=== PATIENT | male | born 1935 | race Caucasian/White ===

== ENCOUNTER → 2017-12-20 | Outpatient (CLI) | payer OTHER ==
[~2017-12-20] VITALS: Ht 160 cm; Wt 83.0 kg
[~2017-12-20] MED LIST: ALBU90AE IH; AMLO10TA2 PO; ASPI-1181 PO; B2/V1TAB PO; BRIN8DRO OU; CARV3.12 PO; CETI10TA57 PO; CHOL500050 PO; CILO50TA PO; CLOP75TA14 PO; FLUT16H NASAL; FLUT200B IH; FURO40TA5 PO; LATA2.5D2 OU; LISI-617 PO; MONT10TA24 PO; REGADENOSON 0.4 MG/5 ML PF SYG IVP SCH; ROSU20TA PO; TAMS0.4C32 PO; TIOT4MIS3 IH; [UNRECOGNIZED DRUG - OTHER] PO
== END | disposition home or self-care (01) ==
LOC: SHCH 09:37
PROVIDERS: ATTEND Internal Medicine Cardiovascular Disease
DX: I25.10 Atherosclerotic heart disease of native coronary artery without angina pectoris (principal); I10 Essential (primary) hypertension
CPT/HCPCS: 78452; 93017; 96374; A9500 ×2; J2785

== ENCOUNTER 2018-01-26 06:59 | Observation (INO) | payer OTHER ==
[2018-01-24 10:26] VITALS: BP 138/69
[2018-01-24 10:33] LABS: BASOPHILS % (AUTO) 0.6 % (0.0-5.0); EOSINOPHILS % (AUTO) 2.3 % (0.0-8.0); HEMATOCRIT 41.7 % (42-54); LYMPHOCYTES % (AUTO) 19.7 % (21.0-51.0); MEAN CORPUSCULAR HEMOGLOBIN 33.5 pg (27.0-33.0); MEAN CORPUSCULAR HGB CONC 35.3 g/dL (32.0-36.0); MONOCYTES % (AUTO) 8.2 % (3.0-13.0); NEUTROPHILS % (AUTO) 69.2 % (40.0-77.0); PLATELET COUNT (AUTO) 186 K/uL (130-400); RED CELL DISTRIBUTION WIDTH 13.5 % (11.0-15.5); WHITE BLOOD COUNT (AUTO) 5.5 K/uL (4.8-10.8)
[2018-01-24 10:34] LABS: APPEARANCE,URINE Clear (CLEAR); BILIRUBIN,URINE Negative (NEGATIVE); COLOR,URINE Yellow (YELLOW); GLUCOSE, URINE (UA) Negative (NEGATIVE); KETONES,URINE Negative (NEGATIVE); LEUKOCYTE ESTERASE ,URINE Negative (NEGATIVE); NITRATE,URINE Negative (NEGATIVE); OCCULT BLOOD,URINE Moderate (NEGATIVE); PROTEIN,URINE Negative (NEGATIVE); UROBILINOGEN,URINE 0.2 mg/dL (0.2-1.0)
[2018-01-24 10:42] LABS: INR 1.14 (0.85-1.15); PARTIAL THROMBOPLASTIN TIME 30.7 SEC (26.3-35.5); PROTHROMBIN TIME 11.9 SEC (9.6-11.6)
[2018-01-24 10:54] LABS: CREATININE 1.3 mg/dL (0.5-1.5); POTASSIUM 4.7 mmol/L (3.5-5.1)
[2018-01-24 11:08] LABS: BACTERIA,URINE None Seen /HPF (None Seen); RBC,URINE 26-50 /HPF (0-1); SQUAMOUS EPITHELIAL CELL,UR Rare /HPF (0-2); WBC,URINE None Seen /HPF (0-1)
[~2018-01-26] VITALS: Ht 160 cm; Wt 65.6 kg
[2018-01-26] VITALS (12 sets, daily range): BP systolic 108–142; BP diastolic 49–69
[~2018-01-26 06:59] MED LIST changes: -CHOL500050 PO; -CLOP75TA14 PO; -FURO40TA5 PO; -LISI-617 PO; -REGADENOSON 0.4 MG/5 ML PF SYG IVP SCH
[2018-01-26] MEDS ORDERED: SODIUM CHLORIDE 0.9% 500ML 500 ML IV SCH (08:00)
[2018-01-26] MEDS ORDERED: SODIUM CHLORIDE 0.9% 1000ML 1,000 ML IV ONE (08:28)
[2018-01-26] MEDS ORDERED: IOPAMIDOL-370 100 ML VIAL IV ONE (10:34)
[2018-01-26] MEDS ORDERED: SODIUM BICARB 50MEQ 50ML VIAL ONE (10:34)
[2018-01-26] MEDS ORDERED: NITROGLYCERIN 5 MG/ML 10 ML VIAL IV ONE (10:34)
[2018-01-26] MEDS ORDERED: LIDOCAINE HCL 1% 20 ML VIAL ONE (10:34)
[2018-01-26] MEDS ORDERED: ISOVUE-370 50ML VIAL IV ONE (10:34)
[2018-01-26] MEDS ORDERED: HEPARIN SODIUM 1000UNIT/ML 10ML VIAL ONE (10:34)
[2018-01-26] MEDS ORDERED: LABETALOL HCL 5 MG/ML 20ML VIAL IV ONE (11:31)
[2018-01-26] MEDS ORDERED: CLOPIDOGREL BISULFATE 300 MG TAB ONE (11:56)
[2018-01-26] MEDS ORDERED: ASPIRIN 325MG EC TAB 325 MG TABLET.DR PO ONE (11:56)
[2018-01-26] MEDS ORDERED: SODIUM CHLORIDE 0.9% 1000ML 1,000 ML IV SCH (11:59)
[2018-01-26] MEDS ORDERED: ACETAMINOPHEN-CODEINE 300/30MG TAB PO PRN (12:00)
[2018-01-26] MEDS ORDERED: CLOP75TA14 PO (12:18)
[2018-01-26] MEDS ORDERED: ALBUTEROL SULFATE 0.083% 2.5 MG/3 ML INH IH PRN (13:30)
[2018-01-26] MEDS: CILOSTAZOL 100 MG TAB PO SCH (15:53)
[2018-01-26] MEDS: BUDESONIDE 0.5 MG/2 ML INH IH SCH (19:48)
[2018-01-26] MEDS ORDERED: MONTELUKAST SODIUM 10 MG TAB PO SCH (21:00)
[2018-01-26] MEDS ORDERED: LATANOPROST 2.5 ML DROPS OU SCH (21:00)
[2018-01-26] MEDS: CARVEDILOL 3.125 MG TABLET PO SCH (21:08)
[2018-01-27 03:53] VITALS: BP 132/61
[2018-01-27 04:57] LABS: HEMATOCRIT 34.2 % (42-54); MEAN CORPUSCULAR HEMOGLOBIN 32.8 pg (27.0-33.0); MEAN CORPUSCULAR HGB CONC 35.2 g/dL (32.0-36.0); MEAN CORPUSCULAR VOLUME 93.1 fL (79-99); PLATELET COUNT (AUTO) 159 K/uL (130-400); RED BLOOD CELL COUNT(AUTO) 3.68 MIL/uL (4.50-6.20); RED CELL DISTRIBUTION WIDTH 13.2 % (11.0-15.5); WHITE BLOOD COUNT (AUTO) 5.2 K/uL (4.8-10.8)
[2018-01-27 05:20] LABS: CREATININE 1.3 mg/dL (0.5-1.5); POTASSIUM 4.1 mmol/L (3.5-5.1)
[2018-01-27] MEDS: BUDESONIDE 0.5 MG/2 ML INH IH SCH (06:10)
[2018-01-27] MEDS: CILOSTAZOL 100 MG TAB PO SCH (06:27)
[2018-01-27 07:08] VITALS: BP 139/73
[2018-01-27] MEDS ORDERED: TAMSULOSIN HCL 0.4 MG CAP.ER.24H PO SCH (09:00)
[2018-01-27] MEDS ORDERED: AMLODIPINE BESYLATE 5 MG TAB PO SCH (09:00)
[2018-01-27] MEDS ORDERED: CLOPIDOGREL BISULFATE 75 MG TAB PO SCH (09:00)
[2018-01-27] MEDS ORDERED: STIOLTO RESPIMAT IH SCH (09:00)
[2018-01-27] MEDS ORDERED: ASPIRIN 81 MG EC TAB PO SCH (09:00)
[2018-01-27] MEDS ORDERED: FLUTICASONE PROPIONATE 50MCG/SPRAY 16 GM BOTTLE EN SCH (09:00)
[2018-01-27] MEDS ORDERED: CETIRIZINE HCL 5 MG TABLET PO SCH (09:00)
[2018-01-27] MEDS ORDERED: [UNRECOGNIZED DRUG - OTHER] PO SCH (09:00)
[2018-01-27] MEDS ORDERED: BRIMONIDINE OU SCH (09:00)
[2018-01-27] MEDS ORDERED: ATORVASTATIN CALCIUM 40 MG TABLET PO SCH (09:00)
[2018-01-27] MEDS ORDERED: BRINZOLAMIDE OU SCH (09:00)
[2018-01-27] MEDS ORDERED: [UNRECOGNIZED DRUG - OTHER] PO SCH (09:00)
[2018-01-27 09:28] VITALS: BP 139/73
[2018-01-27] MEDS: CARVEDILOL 3.125 MG TABLET PO SCH (09:28)
== END 2018-01-27 11:35 | disposition home or self-care (01) ==
LOC: DAH 06:59 → DAHIP 07:00 → 2DH 12:54
PROVIDERS: ADMIT Internal Medicine; ATTEND Internal Medicine
DX: I25.119 Atherosclerotic heart disease of native coronary artery with unspecified angina pectoris (principal); E78.5 Hyperlipidemia, unspecified; I10 Essential (primary) hypertension; I25.5 Ischemic cardiomyopathy; I73.9 Peripheral vascular disease, unspecified; J44.9 Chronic obstructive pulmonary disease, unspecified; Z87.891 Personal history of nicotine dependence; Z95.810 Presence of automatic (implantable) cardiac defibrillator; Z82.49 Family history of ischemic heart disease and other diseases of the circulatory system; Z79.82 Long term (current) use of aspirin
CPT/HCPCS: 36415; 71045; 80048; 81001; 85025; 85027; 85347; 85610; 85730; 93005; 93458; 94640; 94664; A4606; C1769; C1887; C1894; C9600; G0378; J1644; J3490; J7030; Q9967

== ENCOUNTER → 2018-08-04 | Outpatient (CLI) | payer OTHER ==
[~2018-08-04] MED LIST changes: -AMLO10TA2 PO; +AMLO10TA6 PO; +CLOP75TA14 PO
== END | disposition home or self-care (01) ==
LOC: SHCH 10:26
PROVIDERS: ATTEND Internal Medicine Cardiovascular Disease
DX: R60.9 Edema, unspecified (principal)
CPT/HCPCS: 93970

== ENCOUNTER 2018-09-28 10:56 | Observation (INO) | payer OTHER ==
[~2018-09-28] VITALS: Ht 160 cm; Wt 80.3 kg
[~2018-09-28 10:56] MED LIST changes: -AMLO10TA6 PO; +AMLO10TA7 PO
[2018-09-28 12:15] LABS: EOSINOPHILS % (AUTO) 3.2 % (0.0-8.0); HEMATOCRIT 39.6 % (42-54); LYMPHOCYTES % (AUTO) 17.1 % (21.0-51.0); MEAN CORPUSCULAR HEMOGLOBIN 32.6 pg (27.0-33.0); MEAN CORPUSCULAR HGB CONC 34.3 g/dL (32.0-36.0); MEAN CORPUSCULAR VOLUME 95.2 fL (79-99); MONOCYTES % (AUTO) 6.9 % (3.0-13.0); NEUTROPHILS % (AUTO) 71.8 % (40.0-77.0); PLATELET COUNT (AUTO) 181 K/uL (130-400); RED BLOOD CELL COUNT(AUTO) 4.16 MIL/uL (4.50-6.20); RED CELL DISTRIBUTION WIDTH 13.5 % (11.0-15.5); WHITE BLOOD COUNT (AUTO) 5.5 K/uL (4.8-10.8)
[2018-09-28 12:25] LABS: INR 1.18 (0.85-1.15); PARTIAL THROMBOPLASTIN TIME 28.8 SEC (26.3-35.5); PROTHROMBIN TIME 12.3 SEC (9.6-11.6)
[2018-09-28 12:26] LABS: CREATININE 1.3 mg/dL (0.5-1.5); POTASSIUM 4.3 mmol/L (3.5-5.1)
[2018-09-28 12:29] LABS: ABG BASE EXCESS 1.7 mmol/L (-2.0-3.0); ABG OXYGEN SATURATION 94.6 % (95.0-99.0); ABG PCO2 40 mmHg (35-48)
[2018-09-28 12:29] LABS: BILIRUBIN,TOTAL 0.8 mg/dL (0.2-1.0); TOTAL PROTEIN, SERUM 7.7 g/dL (6.0-8.3)
[2018-09-28 13:02] LABS: B-TYPE NATRIURETIC PEPTIDE 109 pg/mL (0-100)
[2018-09-28] MEDS ORDERED: IOHEXOL-350 75 ML VIAL IV ONE (13:14)
[2018-09-28] MEDS ORDERED: IPRATROPIUM/ALBUTEROL SULFATE 3 ML SOLUTION IH ONE (16:14)
[2018-09-28] MEDS ORDERED: ACETAMINOPHEN 325 MG TAB PO PRN (19:15)
[2018-09-28] MEDS ORDERED: ONDANSETRON HCL 4 MG/2 ML VIAL IV PRN (19:15)
[2018-09-28] MEDS ORDERED: FAMOTIDINE 20MG TAB 20 MG TAB ONE (19:46)
[2018-09-28] MEDS ORDERED: ENOXAPARIN SODIUM 30 MG/0.3 ML SQ ONE (19:46)
[2018-09-28] MEDS ORDERED: CARVEDILOL 3.125 MG TABLET PO ONE (19:46)
[2018-09-28] MEDS: CARVEDILOL 3.125 MG TABLET PO SCH (21:00)
[2018-09-28] MEDS: MONTELUKAST SODIUM 10 MG TAB PO SCH (21:00)
[2018-09-28] MEDS: CILOSTAZOL 100 MG TAB PO SCH (21:00)
[2018-09-28] MEDS: ENOXAPARIN SODIUM 30 MG/0.3 ML SQ SCH (21:00)
[2018-09-28] MEDS: LATANOPROST 2.5 ML DROPS OU SCH (21:00)
[2018-09-28] MEDS: FAMOTIDINE 20MG TAB 20 MG TAB PO SCH (21:00)
[2018-09-28] MEDS ORDERED: MONTELUKAST SODIUM 10 MG TAB ONE (21:54)
[2018-09-28] MEDS: ALBUTEROL SULFATE 0.083% 2.5 MG/3 ML INH IH PRN (23:04)
--- NOTE | 2018-09-29 | NUR ---
REPORT RECEIVED FROM MIR CLAYTON. DIRECT ADMIT FROM ER.
--- NOTE | 2018-09-29 00:10 | NUR ---
PT ASSESSMENT- ARRIVED TO UNIT. AAOX3. NO PAIN STATED. NO SOB. NO CONCERNS AT THIS TIME. STATES HAS BEEN AT HOSPITAL BEFORE. LIVES AT HOME WITH PARTNER. PERRLA. ACTIVE BOWEL SOUNDS. ON BEDREST AT THE MOMENT. IV TO LEFT FOREARM 20G, RIGHT AC 20G. PATENT. STATES WAS FEELING SOB, DIZZINESS, AND FEELING OF PASSING OUT WHILE AT [facility]. MEDS RECONCILED.
[2018-09-29 00:30] VITALS: BP 149/58
[2018-09-29 04:00] VITALS: BP 111/69
[2018-09-29] MEDS: ALBUTEROL SULFATE 0.083% 2.5 MG/3 ML INH IH PRN ×3 (06:47→18:05)
[2018-09-29 08:00] VITALS: BP 116/60
[2018-09-29] MEDS: [UNRECOGNIZED DRUG - OTHER] PO SCH (09:00)
[2018-09-29] MEDS ORDERED: AMLODIPINE BESYLATE 5 MG TAB PO SCH (09:00)
[2018-09-29] MEDS: FLUTICASONE PROPIONATE 50MCG/SPRAY 16 GM BOTTLE NS SCH (09:00)
[2018-09-29] MEDS ORDERED: TAMSULOSIN HCL 0.4 MG CAP.ER.24H PO SCH (09:00)
[2018-09-29 11:00] VITALS: BP 128/68
[2018-09-29] MEDS: CILOSTAZOL 100 MG TAB PO SCH ×2 (11:10→22:28)
[2018-09-29] MEDS: CETIRIZINE HCL 5 MG TABLET PO SCH (11:10)
[2018-09-29] MEDS: FAMOTIDINE 20MG TAB 20 MG TAB PO SCH ×2 (11:11→22:28)
[2018-09-29] MEDS: ASPIRIN 81 MG EC TAB PO SCH (11:11)
[2018-09-29] MEDS: ATORVASTATIN CALCIUM 40 MG TABLET PO SCH (11:11)
[2018-09-29] MEDS: CLOPIDOGREL BISULFATE 75 MG TAB PO SCH (11:11)
[2018-09-29] MEDS: CARVEDILOL 3.125 MG TABLET PO SCH (11:12)
[2018-09-29] MEDS: ENOXAPARIN SODIUM 30 MG/0.3 ML SQ SCH ×2 (11:12→22:30)
[2018-09-29] MEDS: [UNRECOGNIZED DRUG - OTHER] PO SCH (11:18)
[2018-09-29] MEDS: OLODATEROL HCL IH SCH (11:20)
[2018-09-29] MEDS: TIOTROPIUM BR IH SCH (11:20)
[2018-09-29] MEDS: FLUTICASONE FUROATE IH SCH (11:20)
[2018-09-29 16:00] VITALS: BP 158/70
[2018-09-29] MEDS ORDERED: FURO40SO PO (17:59)
[2018-09-29] MEDS ORDERED: FURO20TA4 PO (18:04)
[2018-09-29 20:17] VITALS: BP 102/55
[2018-09-29] MEDS: LATANOPROST 2.5 ML DROPS OU SCH (21:00)
[2018-09-29] MEDS: FUROSEMIDE 40 MG TABLET PO SCH (22:28)
[2018-09-29] MEDS: MONTELUKAST SODIUM 10 MG TAB PO SCH (22:28)
[2018-09-30] MEDS: ALBUTEROL SULFATE 0.083% 2.5 MG/3 ML INH IH PRN (00:19)
[2018-09-30 01:32] VITALS: BP 128/80
[2018-09-30 04:00] VITALS: BP 108/59
[2018-09-30 04:40] LABS: BASOPHILS % (AUTO) 0.6 % (0.0-5.0); EOSINOPHILS % (AUTO) 3.5 % (0.0-8.0); HEMATOCRIT 33.9 % (42-54); LYMPHOCYTES % (AUTO) 23.8 % (21.0-51.0); MEAN CORPUSCULAR VOLUME 94.1 fL (79-99); NEUTROPHILS % (AUTO) 64.1 % (40.0-77.0); PLATELET COUNT (AUTO) 151 K/uL (130-400); RED BLOOD CELL COUNT(AUTO) 3.61 MIL/uL (4.50-6.20); RED CELL DISTRIBUTION WIDTH 13.3 % (11.0-15.5); WHITE BLOOD COUNT (AUTO) 4.9 K/uL (4.8-10.8)
[2018-09-30 05:39] LABS: CREATININE 1.8 mg/dL (0.5-1.5); POTASSIUM 3.5 mmol/L (3.5-5.1); THYROID STIMULATING HORMONE 2.4 uIU/mL (0.36-3.74)
[2018-09-30 07:00] VITALS: BP_SYST 102; BP_SYST 107; BP_SYST 120; BP_DIAS 48; BP_DIAS 60; BP_DIAS 74
[2018-09-30] MEDS: ASPIRIN 81 MG EC TAB PO SCH (08:51)
[2018-09-30] MEDS: ENOXAPARIN SODIUM 30 MG/0.3 ML SQ SCH (08:51)
[2018-09-30] MEDS: FAMOTIDINE 20MG TAB 20 MG TAB PO SCH (08:51)
[2018-09-30] MEDS: CLOPIDOGREL BISULFATE 75 MG TAB PO SCH (08:51)
[2018-09-30] MEDS: FUROSEMIDE 40 MG TABLET PO SCH (08:52)
[2018-09-30] MEDS: CETIRIZINE HCL 5 MG TABLET PO SCH (08:52)
[2018-09-30] MEDS: CILOSTAZOL 100 MG TAB PO SCH (08:52)
[2018-09-30] MEDS: ATORVASTATIN CALCIUM 40 MG TABLET PO SCH (08:53)
[2018-09-30] MEDS: FLUTICASONE FUROATE IH SCH (08:57)
[2018-09-30] MEDS: FLUTICASONE PROPIONATE 50MCG/SPRAY 16 GM BOTTLE NS SCH (08:57)
[2018-09-30] MEDS: OLODATEROL HCL IH SCH (08:58)
[2018-09-30] MEDS: [UNRECOGNIZED DRUG - OTHER] PO SCH (08:58)
[2018-09-30] MEDS: TIOTROPIUM BR IH SCH (08:58)
[2018-09-30] MEDS: [UNRECOGNIZED DRUG - OTHER] PO SCH (08:58)
[2018-09-30] MEDS ORDERED: LISI2.5T2 PO (11:08)
[2018-09-30] MEDS ORDERED: CARV6.25 PO (11:08)
[2018-09-30] MEDS ORDERED: FLUT1DIS4 IH (12:44)
[2018-09-30] MEDS ORDERED: IOHEXOL-350 75 ML VIAL IV ONE (13:34)
--- NOTE | 2018-09-30 14:22 | NUR ---
PATIENT DISCHARGED IV DISCONTINUED, BLEEDING CONTROLLED, CATHLON INTACT, PATIENT TOLERATED WITHOUT INCIDENT.
== END 2018-09-30 13:35 | disposition home or self-care (01) ==
LOC: EDH 10:56 → EDHIP 18:25 → 3BH 09-29 00:15
PROVIDERS: ADMIT Internal Medicine; ATTEND Internal Medicine
DX: R55 Syncope and collapse (principal); E78.5 Hyperlipidemia, unspecified; I11.0 Hypertensive heart disease with heart failure; I25.10 Atherosclerotic heart disease of native coronary artery without angina pectoris; I25.5 Ischemic cardiomyopathy; I45.10 Unspecified right bundle-branch block; I50.22 Chronic systolic (congestive) heart failure; I73.9 Peripheral vascular disease, unspecified; I95.1 Orthostatic hypotension; J44.0 Chronic obstructive pulmonary disease with (acute) lower respiratory infection; J44.1 Chronic obstructive pulmonary disease with (acute) exacerbation; R09.02 Hypoxemia; Z87.891 Personal history of nicotine dependence; Z95.5 Presence of coronary angioplasty implant and graft; Z95.810 Presence of automatic (implantable) cardiac defibrillator
CPT/HCPCS: 36415 ×2; 36600; 71045; 71275; 80048; 80053; 82803; 83880; 84439; 84443; 84484 ×2; 85025 ×2; 85378; 85610; 85730; 93005; 93970; 94640 ×6; 94664; 94760 ×2; 96372 ×2; 99291; G0378 ×43; J1650 ×4; Q9967 ×2

== ENCOUNTER → 2019-04-09 | Outpatient (CLI) | payer OTHER ==
[~2019-04-09] MED LIST changes: -AMLO10TA7 PO; -CARV3.12 PO; +CARV6.25 PO; +FLUT1DIS4 IH; -FLUT200B IH; +FURO20TA4 PO; +LISI2.5T2 PO; -MONT10TA24 PO; -ROSU20TA PO; +ROSU20TA23 PO; -TAMS0.4C32 PO; -[UNRECOGNIZED DRUG - OTHER] PO
== END | disposition home or self-care (01) ==
LOC: SHCH 10:33
PROVIDERS: ATTEND Internal Medicine Cardiovascular Disease
DX: I11.9 Hypertensive heart disease without heart failure (principal); I35.8 Other nonrheumatic aortic valve disorders
CPT/HCPCS: 93306

== ENCOUNTER → 2019-05-21 | Outpatient (CLI) | payer OTHER ==
[~2019-05-21] VITALS: Ht 162.6 cm; Wt 81.2 kg
[~2019-05-21] MED LIST changes: +REGADENOSON 0.4 MG/5 ML PF SYG IVP SCH
== END | disposition home or self-care (01) ==
LOC: SHCH 08:24
PROVIDERS: ATTEND Internal Medicine Cardiovascular Disease
DX: I25.119 Atherosclerotic heart disease of native coronary artery with unspecified angina pectoris (principal)
CPT/HCPCS: 78452; 93017; 96374; A9500 ×2; J2785

== ENCOUNTER → 2019-06-18 | Outpatient (CLI) | payer OTHER ==
[~2019-06-18] MED LIST changes: -REGADENOSON 0.4 MG/5 ML PF SYG IVP SCH
== END | disposition home or self-care (01) ==
LOC: RAH 11:03
PROVIDERS: ATTEND Urology
DX: N32.89 Other specified disorders of bladder (principal); R31.29 Other microscopic hematuria
CPT/HCPCS: 76770

== ENCOUNTER 2019-07-11 07:23 | Observation (INO) | payer OTHER ==
[2019-07-09 12:17] LABS: BASOPHILS % (AUTO) 0.6 % (0.0-5.0); EOSINOPHILS % (AUTO) 4.2 % (0.0-8.0); HEMATOCRIT 39.7 % (42-54); LYMPHOCYTES % (AUTO) 17.5 % (21.0-51.0); MEAN CORPUSCULAR VOLUME 96.9 fL (79-99); MONOCYTES % (AUTO) 9.2 % (3.0-13.0); NEUTROPHILS % (AUTO) 68.5 % (40.0-77.0); NUCLEATED RED BLOOD CELLS 0.1 % (0.0-0.19); PLATELET COUNT (AUTO) 175 K/uL (130-400); RED BLOOD CELL COUNT(AUTO) 4.09 MIL/uL (4.50-6.20); RED CELL DISTRIBUTION WIDTH 13.2 % (11.0-15.5); WHITE BLOOD COUNT (AUTO) 4.8 K/uL (4.8-10.8)
[2019-07-09 12:21] VITALS: BP 163/83
[2019-07-09 12:27] LABS: CREATININE 1.3 mg/dL (0.5-1.5); POTASSIUM 4.5 mmol/L (3.5-5.1)
[2019-07-09 12:29] LABS: INR 1.22 (0.85-1.15); PARTIAL THROMBOPLASTIN TIME 32.2 SEC (26.3-35.5); PROTHROMBIN TIME 12.7 SEC (9.6-11.6)
--- NOTE | 2019-07-09 13:15 | NUR ---
RE: CILOSTAZOL INFORMED LUIS DAN THAT PATIENT IS CURRENTLY TAKING CILOSTAZOL BID. PATIENT'S LAST DOSE WAS LAST NIGHT. PER INÉS, OK TO PROCEED WITH SCHEDULED PROCEDURE.
--- NOTE | 2019-07-10 09:43 | NUR ---
LABS ABNORMAL LAbs reported to imer padron,no further orders given
[2019-07-11] VITALS (10 sets, daily range): BP systolic 119–175; BP diastolic 59–89
[~2019-07-11] VITALS: Ht 157.5 cm; Wt 78.4 kg
[~2019-07-11 07:23] MED LIST changes: +ACET650T9 PO; -ALBU90AE IH; -B2/V1TAB PO; +CHOL500050 PO; +FLUT1BLS3 IH; -FLUT1DIS4 IH; +NITR0.4T50 SL; +SODIUM CHLORIDE 0.9% 1000ML 1,000 ML IV SCH; +TAMS-1 PO; -TIOT4MIS3 IH; +VIT1CAPS5 PO
[2019-07-11] MEDS ORDERED: ALBU90AE IH ×2 (09:14)
[2019-07-11] MEDS ORDERED: CEFAZOLIN SODIUM 1 GM VIAL ONE (11:22)
[2019-07-11] MEDS ORDERED: MIDAZOLAM HCL 1 MG/ML 2ML VIAL ONE ×2 (11:22→13:03)
[2019-07-11] MEDS ORDERED: MEPERIDINE-PF 25 MG/ML SYG ONE ×2 (11:22→13:04)
[2019-07-11] MEDS ORDERED: IODIXANOL 320 MG/ML 100 ML VIAL ONE (11:23)
[2019-07-11] MEDS ORDERED: LIDOCAINE HCL 1% MDV 50ML VIAL ONE (11:23)
[2019-07-11] MEDS ORDERED: BUPIVACAINE/PF 0.25% 10ML VIAL IJ ONE (11:23)
[2019-07-11] MEDS ORDERED: VANCOMYCIN 1GM+NS 250ML 500 ML IV ONE (11:26)
[2019-07-11] MEDS ORDERED: OCTYL 2-CYANOACRYLATE 1 EACH TP ONE (13:10)
[2019-07-11] MEDS ORDERED: ACETAMINOPHEN EXTENDED RELEASE 650 MG TABLET PO PRN (13:45)
[2019-07-11] MEDS ORDERED: ONDANSETRON HCL 4 MG/2 ML VIAL IV PRN (13:45)
[2019-07-11] MEDS ORDERED: NITROGLYCERIN 0.4 MG SL TAB SL PRN (13:45)
[2019-07-11] MEDS ORDERED: ACETAMINOPHEN-CODEINE 300/30MG TAB PO PRN ×2 (13:45)
[2019-07-11] MEDS ORDERED: ACETAMINOPHEN 325 MG TAB PO PRN (14:30)
--- NOTE | 2019-07-11 14:30 | NUR ---
ARRIVAL TO FLOOR PT IS AAOX4 ARRIVED TO ROOM 220. LEFT UPPER CHEST DRESSING CLEAN DRY AND INTACT, BEDREST IN PROGRESS. ARRIVED WITH ORDERS, CALL LIGHT WITHIN REACH.
[2019-07-11] MEDS: BRIMONID TART OU SCH ×2 (14:55→21:00)
[2019-07-11] MEDS: BRINZOLAMIDE OU SCH ×2 (14:55→21:00)
--- NOTE | 2019-07-11 17:45 | NUR ---
STATUS SITTING UPRIGHT AT BEDSIDE, TOLERATED DINNER. CALL LIGHT WITHIN REACH.
[2019-07-11] MEDS: CARVEDILOL 6.25 MG TABLET PO SCH (20:24)
[2019-07-11] MEDS: TAMSULOSIN HCL 0.4 MG CAP.ER.24H PO SCH (20:25)
[2019-07-11] MEDS: CILOSTAZOL 100 MG TAB PO SCH (20:26)
[2019-07-11] MEDS ORDERED: LATANOPROST 2.5 ML DROPS OU SCH (21:00)
[2019-07-11] MEDS ORDERED: ATORVASTATIN CALCIUM 40 MG TABLET PO SCH (21:00)
[2019-07-11] MEDS ORDERED: ASPIRIN 81 MG EC TAB PO SCH (21:00)
[2019-07-12 03:49] LABS: BASOPHILS % (AUTO) 0.5 % (0.0-5.0); EOSINOPHILS % (AUTO) 4.4 % (0.0-8.0); HEMATOCRIT 35.6 % (42-54); LYMPHOCYTES % (AUTO) 17.2 % (21.0-51.0); MEAN CORPUSCULAR HGB CONC 33.8 g/dL (32.0-36.0); MEAN CORPUSCULAR VOLUME 97.6 fL (79-99); MONOCYTES % (AUTO) 9.6 % (3.0-13.0); NEUTROPHILS % (AUTO) 68.3 % (40.0-77.0); PLATELET COUNT (AUTO) 147 K/uL (130-400); RED BLOOD CELL COUNT(AUTO) 3.65 MIL/uL (4.50-6.20); RED CELL DISTRIBUTION WIDTH 13.3 % (11.0-15.5)
[2019-07-12 04:07] LABS: CREATININE 1.3 mg/dL (0.5-1.5); MAGNESIUM 1.8 mg/dL (1.80-2.40); PHOSPHORUS 2.7 mg/dL (2.5-4.9); POTASSIUM 4.2 mmol/L (3.5-5.1)
[2019-07-12 04:10] VITALS: BP 126/74
[2019-07-12] MEDS ORDERED: VANCOMYCIN 1GM+NS 250ML 250 ML IV SCH (06:00)
--- NOTE | 2019-07-12 06:27 | NUR ---
PATIENT HAS SLING TO LEFT ARM. NO HEMATOMA AT SITE. PATIENT REQUESTED PAIN MEDSX1 FOR SORENESS AT SITE. NO SWELLING TO ARM OR FINGERS. RADIAL PULSE PALPABLE. DENIES NUMBNESS OR TINGLING. USING URINAL APPROPRIATELY.
[2019-07-12] MEDS ORDERED: ALBUTEROL SULFATE 0.083% 2.5 MG/3 ML INH IH PRN (06:45)
[2019-07-12 07:10] VITALS: BP 121/73
[2019-07-12] MEDS: BRIMONID TART OU SCH (07:11)
[2019-07-12] MEDS: BRINZOLAMIDE OU SCH (07:11)
[2019-07-12] MEDS: CILOSTAZOL 100 MG TAB PO SCH (07:42)
[2019-07-12 07:43] VITALS: BP 126/74
[2019-07-12] MEDS: CARVEDILOL 6.25 MG TABLET PO SCH (07:43)
[2019-07-12] MEDS: TAMSULOSIN HCL 0.4 MG CAP.ER.24H PO SCH (07:43)
--- NOTE | 2019-07-12 08:00 | NUR ---
ASSESSMENT PT IS AAOX4 DENIES CP DENIES SOB DENIES NV NO COMPLAINTS. LEFT UPPER CHEST DRESSING CLEAN DRY AND INTACT, LEFT ARM SLING IN PLACE. CALL LIGHT WITHIN REACH.
[2019-07-12] MEDS ORDERED: VIT A PO SCH (09:00)
[2019-07-12] MEDS ORDERED: ZINC PO SCH (09:00)
[2019-07-12] MEDS ORDERED: FUROSEMIDE 20 MG TABLET PO SCH (09:00)
[2019-07-12] MEDS ORDERED: VIT E PO SCH (09:00)
[2019-07-12] MEDS ORDERED: LISINOPRIL 2.5 MG TABLET PO SCH (09:00)
[2019-07-12] MEDS ORDERED: COPPER PO SCH (09:00)
[2019-07-12] MEDS ORDERED: CETIRIZINE HCL 5 MG TABLET PO SCH (09:00)
[2019-07-12] MEDS ORDERED: VIT C PO SCH (09:00)
[2019-07-12] MEDS ORDERED: TRELEGY ELLIPTA IH PRN (09:00)
[2019-07-12] MEDS ORDERED: CLOPIDOGREL BISULFATE 75 MG TAB PO SCH (09:00)
[2019-07-12] MEDS ORDERED: FLUTICASONE PROPIONATE 50MCG/SPRAY 16 GM BOTTLE NS SCH (09:00)
--- NOTE | 2019-07-12 09:00 | NUR ---
MID LEVEL ROUNDS INÉS BRITTON / Haider QUEVEDO NP ROUNDED. OK TO DC HOME.
--- NOTE | 2019-07-12 10:02 | NUR ---
DISCHARGE DC INSTRUCTIONS AND PAPERWORK GIVEN TO PATIENT. VERBALIZED UNDERSTANDING OF INSTRUCTIONS, AGREES TO FOLLOW UP WITH DR HSU OUTPT. AGREES TO TAKE MEDS ORDERED. ALL QUESTIONS ANSWERED. PIV REMOVED, CATH TIP INTACT, TELE PACK REMOVED. PT IS AWAITING RIDE.
[2019-07-18] MEDS ORDERED: **HM**(Cholecalciferol (Vitamin D3) (Vitamin D) 50,000 UNIT PO SCH (09:00)
== END 2019-07-12 10:30 | disposition home or self-care (01) ==
LOC: DAH 07:23 → DAHIP 07:24 → DAH 07:24 → 2DH 14:30
PROVIDERS: ADMIT Internal Medicine Critical Care Medicine; ATTEND Internal Medicine Critical Care Medicine
DX: I42.9 Cardiomyopathy, unspecified (principal); E78.5 Hyperlipidemia, unspecified; M19.90 Unspecified osteoarthritis, unspecified site; Z45.02 Encounter for adjustment and management of automatic implantable cardiac defibrillator; Z79.02 Long term (current) use of antithrombotics/antiplatelets; Z79.51 Long term (current) use of inhaled steroids; Z88.0 Allergy status to penicillin; Z79.899 Other long term (current) drug therapy; Z79.01 Long term (current) use of anticoagulants
CPT/HCPCS: 33225; 33264; 36415 ×2; 71046; 80048 ×2; 83735; 84100; 85025 ×2; 85610; 85730; 93005; 94664; 96365; 96366; A4215; A4216; A4221; A4222; A4223 ×3; A4606; C1769; C1882; C1894; C1900; G0378 ×21; J2175 ×2; J2250 ×2; J3370 ×2; J3490 ×2; J7030; Q9967; 33263; 99156; 99157; J0690

== ENCOUNTER → 2019-07-13 | Outpatient (CLI) | payer OTHER ==
[~2019-07-13] MED LIST changes: +ALBU90AE IH; -SODIUM CHLORIDE 0.9% 1000ML 1,000 ML IV SCH
== END | disposition home or self-care (01) ==
LOC: RAH 13:26
PROVIDERS: ATTEND Internal Medicine Cardiovascular Disease
DX: I82.402 Acute embolism and thrombosis of unspecified deep veins of left lower extremity (principal)
CPT/HCPCS: 93971

== ENCOUNTER 2019-08-07 12:03 | Inpatient (IN) | payer OTHER ==
[2019-08-06 09:13] VITALS: BP 183/81
[2019-08-06 09:40] LABS: MEAN CORPUSCULAR HEMOGLOBIN 33.2 pg (27.0-33.0); MEAN CORPUSCULAR VOLUME 97.6 fL (79-99); PLATELET COUNT (AUTO) 154 K/uL (130-400); RED BLOOD CELL COUNT(AUTO) 3.99 MIL/uL (4.50-6.20); RED CELL DISTRIBUTION WIDTH 13.6 % (11.0-15.5); WHITE BLOOD COUNT (AUTO) 8.3 K/uL (4.8-10.8)
[2019-08-06 09:41] LABS: APPEARANCE,URINE Clear (CLEAR); BILIRUBIN,URINE Negative (NEGATIVE); COLOR,URINE Yellow (YELLOW); GLUCOSE, URINE (UA) Negative (NEGATIVE); KETONES,URINE Negative (NEGATIVE); LEUKOCYTE ESTERASE ,URINE Trace (NEGATIVE); NITRATE,URINE Negative (NEGATIVE); OCCULT BLOOD,URINE Moderate (NEGATIVE); PROTEIN,URINE Trace mg/dL (NEGATIVE)
[2019-08-06 09:46] LABS: CREATININE 1.1 mg/dL (0.5-1.5)
[2019-08-06 09:49] LABS: INR 1.16 (0.85-1.15); PROTHROMBIN TIME 12.1 SEC (9.6-11.6)
[2019-08-06 09:55] LABS: BACTERIA,URINE Rare /HPF (None Seen); SQUAMOUS EPITHELIAL CELL,UR 0-2 /HPF (0-2); WBC,URINE 0-1 /HPF (0-1)
--- NOTE | 2019-08-06 10:30 | NUR ---
ON PLAVIX PATIENT STATED HE LAST TOOK PLAVIX ON TUESDAY. SPOKE TO LUIS ARMANDO AT DR. MORALES OFFICE AND SHE STATED PER SARITA/DR. CARABALLO 3 DAYS HOLD OF PLAVIX WAS OK AND OK TO PROCEED WITH SURGERY.
[2019-08-06] MEDS: LACTATED RINGERS 1000ML 1,000 ML IV SCH (13:45)
--- NOTE | 2019-08-06 14:15 | NUR ---
ABNORMAL LABS/PULMONARY CLEARANCE CALLED DR. CARABALLO'S OFFICE TO REPORT ABNORMAL LABS, SPOKE TO NILO, STATED TO FAX ABNORMAL LABS FOR DR. CARABALLO TO REVIEW. LABS FAXED. ALSO TOLD NILO THAT NOTE FROM DR. HUYNH ([employer] MILL OPERATOR) DOES NOT STATE CLEARANCE FOR SURGERY. PER NILO, SHE WILL CALL DR. HUYNH'S OFFICE.
--- NOTE | 2019-08-06 15:41 | NUR ---
ABNORMAL EKG ABNORMAL EKG REPORTED TO DR. LOZANO. NO FURTHER ORDERS GIVEN, MAY PROCEED WITH PLANNED PROCEDURE.
--- NOTE | 2019-08-06 16:45 | NUR ---
ABNORMAL LABS PER NILO, DR. CARABALLO REVIEWED FAXED ABNORMAL LABS CBC, PT/PTT, UA. NO FURTHER ORDERS GIVEN.
--- NOTE | 2019-08-06 17:00 | NUR ---
PULMONOLOGY CLEARANCE CALLED [facility]'S OFFICE, BLANKET WINDER OPERATOR WHO SAW PT. SPOKE TO STAFF, STATED PT IS CLEARED BUT THERE IS NO ACTUAL NOTE OR STATEMENT STATING PT IS CLEARED, PER STAFF, IS GONE FOR THE DAY AND IS NOT COMING IN TOMORROW. I SPOKE TO RANI AT THE [facility] OFFICE, STATED THE SAME. SHE WILL FAX A NOTE, FOR US TO SEE IF IT IS SUFFICIENT ENOUGH FOR CLEARANCE.
--- NOTE | 2019-08-06 18:00 | NUR ---
PULMONARY CLEARANCE DR. LOZANO MADE AWARE OF PULMONOLOGY NOTES (). NO FURTHERNORDERS, MAY PROCEED WITH PLANNED PROCEDURE.
[~2019-08-07] VITALS: Ht 160 cm; Wt 79.1 kg
[2019-08-07] VITALS (24 sets, daily range): BP systolic 119–200; BP diastolic 57–108
[~2019-08-07 12:03] MED LIST changes: -ACET650T9 PO; +LEVOFLOXACIN 500 MG/D5W 100 ML 100 ML IV SCH; +MITOMYCIN 40 MG VIAL IV SCH; +PRED20TA3 PO; -TAMS-1 PO; -VIT1CAPS5 PO
[2019-08-07] MEDS ORDERED: LEVOFLOXACIN 500 MG/D5W 100 ML 100 ML ONE ×2 (12:40→17:57)
[2019-08-07] MEDS ORDERED: MITOMYCIN 40 MG VIAL ONE (14:16)
[2019-08-07] MEDS ORDERED: DEXAMETHASONE SOD PHOSPHATE 10MG/ML 1ML VIAL ONE (14:17)
[2019-08-07] MEDS ORDERED: LIDOCAINE PF 2% 5ML ABBOJECT ONE (14:17)
[2019-08-07] MEDS ORDERED: SUCCINYLCHOLINE 200MG/10ML SYR ONE (14:17)
[2019-08-07] MEDS ORDERED: PROPOFOL 10 MG/ML 20ML VIAL IV ONE (14:18)
[2019-08-07] MEDS ORDERED: MIDAZOLAM HCL 1 MG/ML 2ML VIAL ONE (14:18)
[2019-08-07] MEDS ORDERED: ROCURONIUM 10MG/1ML SYR 10 MG/ML ML ONE (14:18)
[2019-08-07] MEDS ORDERED: NEOSTIGMINE 5MG/5ML SYR IV ONE (14:18)
[2019-08-07] MEDS ORDERED: GLYCOPYRROLATE 1 MG/5 ML SYRINGE ONE (14:18)
[2019-08-07] MEDS ORDERED: ONDANSETRON HCL 4 MG/2 ML VIAL ONE (14:18)
[2019-08-07] MEDS ORDERED: FENTANYL CITRATE PF 50 MCG/1 ML 2ML VIAL ONE (14:19)
[2019-08-07] MEDS ORDERED: SUB TO ALBUTEROL 2.5MG/3ML NEBULES PER P&T IH ONE (17:34)
[2019-08-07] MEDS ORDERED: EPHEDRINE SULFATE 50 MG/ML AMPULE ONE (17:44)
[2019-08-07] MEDS: LACTATED RINGERS 1000ML 1,000 ML IV SCH ×2 (18:07→21:04)
[2019-08-07] MEDS ORDERED: NALOXONE HCL 0.4 MG/1 ML ML ONE (18:26)
[2019-08-07] MEDS ORDERED: HYDRALAZINE HCL 20 MG/ML VIAL ONE (18:48)
--- NOTE | 2019-08-07 19:35 | NUR ---
POST OP Received from PACU,report given by Adeel Rn.Pt aao x 3,states discomfort to penile area.3 way fontana cath attached to CBI draining hematuria,no clots noted.Plan of care and post op vitals and instructions provided to pt and family,verbalized understanding.
[2019-08-07] MEDS ORDERED: MEPERIDINE-PF 75 MG/ML SYG IM PRN (20:15)
[2019-08-07] MEDS ORDERED: ACETAMINOPHEN 325 MG TAB PO PRN (20:15)
[2019-08-07] MEDS ORDERED: ONDANSETRON HCL 4 MG/2 ML VIAL IVP PRN (20:15)
[2019-08-07] MEDS ORDERED: NITROGLYCERIN 0.4 MG SL TAB SL PRN (20:30)
[2019-08-07] MEDS ORDERED: OXYBUTYNIN CHLORIDE 5 MG TABLET PO PRN (20:30)
[2019-08-07] MEDS: CILOSTAZOL 100 MG TAB PO SCH (21:00)
[2019-08-07] MEDS: BRIMONID TART OU SCH (21:00)
[2019-08-07] MEDS: LATANOPROST 2.5 ML DROPS OU SCH (21:00)
[2019-08-07] MEDS: BRINZOLAMIDE OU SCH (21:00)
[2019-08-07] MEDS: ACETAMINOPHEN-CODEINE 300/30MG TAB PO PRN (21:00)
[2019-08-07] MEDS: ATORVASTATIN CALCIUM 40 MG TABLET PO SCH (21:00)
[2019-08-07] MEDS: CARVEDILOL 6.25 MG TABLET PO SCH (21:01)
[2019-08-07] MEDS ORDERED: OXYBUTYNIN CHLORIDE 5 MG TABLET ONE (21:54)
--- NOTE | 2019-08-07 23:00 | NUR ---
IRRIGATION CBI with small clots noted,manually irrigated with sterile water,romulo well.
--- NOTE | 2019-08-07 23:40 | NUR ---
STATUS Pt calm,lying on his side,intructed to cough and deep breathe,scd's to both legs.CBI with pink tinged output,no clots noted.
[2019-08-08] VITALS (9 sets, daily range): BP systolic 100–129; BP diastolic 45–64
[2019-08-08] MEDS ORDERED: ALBUTEROL SULFATE 0.083% 2.5 MG/3 ML INH IH ONE (00:50)
--- NOTE | 2019-08-08 00:52 | NUR ---
BREATHING Pt appears to be sob,states he feels tired.Repositioned in bed,hob up 30 degrees.Instructed to take slow deep breathe.O2 sat 95% on at 2 lpm via NC.Notified RT,will give him nebulizer treatment as prn order from home.
--- NOTE | 2019-08-08 01:16 | NUR ---
TACHYPNEIC Pt states he still feels tired,breathing is slightly labored,rate 24.02 sat 96% on 02 2lpm via nc.Breath sounds very diminished.Paged Dr Suarez thru answering service.
--- NOTE | 2019-08-08 02:04 | NUR ---
BREATHING Pt less labored breathing,eyes closed.
[2019-08-08 04:33] LABS: HEMATOCRIT 37.7 % (42-54); MEAN CORPUSCULAR HEMOGLOBIN 33.2 pg (27.0-33.0); MEAN CORPUSCULAR HGB CONC 34.2 g/dL (32.0-36.0); PLATELET COUNT (AUTO) 137 K/uL (130-400); RED BLOOD CELL COUNT(AUTO) 3.89 MIL/uL (4.50-6.20); RED CELL DISTRIBUTION WIDTH 13.4 % (11.0-15.5); WHITE BLOOD COUNT (AUTO) 6.7 K/uL (4.8-10.8)
[2019-08-08 04:45] LABS: CREATININE 1.2 mg/dL (0.5-1.5); POTASSIUM 4.7 mmol/L (3.5-5.1)
[2019-08-08] MEDS: ACETAMINOPHEN-CODEINE 300/30MG TAB PO PRN (05:10)
[2019-08-08] MEDS ORDERED: ALBUTEROL SULFATE 0.083% 2.5 MG/3 ML INH IH PRN (06:30)
[2019-08-08] MEDS: ALBUTEROL SULFATE 0.083% 2.5 MG/3 ML INH IH PRN ×2 (06:40→19:20)
[2019-08-08] MEDS: BRIMONID TART OU SCH ×3 (09:00→21:00)
[2019-08-08] MEDS: BRINZOLAMIDE OU SCH ×3 (09:00→21:00)
[2019-08-08] MEDS: **HM**(Fluticasone/Umeclidin/Vilanter (Trelegy Ellipta 100-62.5- IH SCH (09:00)
[2019-08-08] MEDS: CARVEDILOL 6.25 MG TABLET PO SCH ×2 (09:27→21:38)
[2019-08-08] MEDS: FUROSEMIDE 20 MG TABLET PO SCH (09:28)
[2019-08-08] MEDS: PREDNISONE 20 MG TABLET PO SCH (09:29)
[2019-08-08] MEDS: CETIRIZINE HCL 5 MG TABLET PO SCH (09:29)
[2019-08-08] MEDS: CILOSTAZOL 100 MG TAB PO SCH (09:30)
[2019-08-08] MEDS: LISINOPRIL 2.5 MG TABLET PO SCH (09:30)
[2019-08-08] MEDS: LACTATED RINGERS 1000ML 1,000 ML IV SCH (09:35)
[2019-08-08] MEDS: FLUTICASONE PROPIONATE 50MCG/SPRAY 16 GM BOTTLE NS SCH (11:45)
--- NOTE | 2019-08-08 13:59 | NUR ---
Reviewed labs, fontana output/true urine totals, and plan of care with Dr. Suarez. Urine output remains reddish/pink in color. Patient to remain overnight. Received order for cardiology consult for weakness, shortness of breath, antiplatelet therapy and rhythm with history of AICD, and high school social studies teacher consult to ensure patient has all equipment needed at home. Received verbal order to decrease IV fluids to KVO and continue with CBI at slow, steady infusion rate.
[2019-08-08] MEDS: LEVOFLOXACIN 500 MG/D5W 100 ML 100 ML IV SCH (15:07)
--- NOTE | 2019-08-08 16:46 | NUR ---
HOME SITUATION Sw met with pt who lives with his in [place]. 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 Pt reports he is independent of ADLS, has no DME at home or in home care services. Pt denies that he has any dc needs and plan is home with
[2019-08-08] MEDS: LATANOPROST 2.5 ML DROPS OU SCH (21:00)
--- NOTE | 2019-08-08 21:41 | NUR ---
Eye Drops: Eye Drops not given patient left it at home claimed, " Anyway I'm gong home tomorrow I can use the eye drops at home."
[2019-08-08] MEDS: ATORVASTATIN CALCIUM 40 MG TABLET PO SCH (21:58)
[2019-08-09 04:00] VITALS: BP 122/59
[2019-08-09] MEDS: ALBUTEROL SULFATE 0.083% 2.5 MG/3 ML INH IH PRN ×2 (06:23→18:20)
[2019-08-09 07:00] VITALS: BP 111/44
--- NOTE | 2019-08-09 07:47 | NUR ---
IN TO SEE PT. AND REVIEW HOME MEDICATIONS. STATED TO STOP THE PLAVIX ALTOGETHER BUT TO CONTINUE ASA.
[2019-08-09] MEDS: FLUTICASONE PROPIONATE 50MCG/SPRAY 16 GM BOTTLE NS SCH (09:00)
[2019-08-09] MEDS: BRINZOLAMIDE OU SCH ×2 (09:00→14:00)
[2019-08-09] MEDS: **HM**(Fluticasone/Umeclidin/Vilanter (Trelegy Ellipta 100-62.5- IH SCH (09:00)
[2019-08-09] MEDS: BRIMONID TART OU SCH ×2 (09:00→14:00)
[2019-08-09] MEDS: LISINOPRIL 2.5 MG TABLET PO SCH (09:54)
[2019-08-09] MEDS: CETIRIZINE HCL 5 MG TABLET PO SCH (09:55)
[2019-08-09] MEDS: FUROSEMIDE 20 MG TABLET PO SCH (09:55)
[2019-08-09] MEDS: PREDNISONE 20 MG TABLET PO SCH (09:57)
[2019-08-09] MEDS: CARVEDILOL 6.25 MG TABLET PO SCH (09:57)
[2019-08-09 11:00] VITALS: BP 105/72
--- NOTE | 2019-08-09 11:30 | NUR ---
[id number] had IM letter signed.
--- NOTE | 2019-08-09 14:30 | NUR ---
IN TO SEE PT. DC ORDERS ENTERED. KEEP MAURICIO SANDOVAL CBI. WILL SEE IN CLINIC ON TUESDAY.
[2019-08-09] MEDS: LEVOFLOXACIN 500 MG/D5W 100 ML 100 ML IV SCH (15:19)
[2019-08-09 16:00] VITALS: BP 142/64
[2019-08-14] MEDS ORDERED: **HM**Cholecalciferol (Vitamin D3) (Vitamin D) 50,000 UNIT PO SCH (09:00)
== END 2019-08-09 21:00 | disposition home or self-care (01) | DRG 670 ==
LOC: DAH 12:03 → OBSVTOIN 12:04 → DAHIP 12:04 → DAH 12:04 → 3DH 20:10
PROVIDERS: ADMIT Urology; ATTEND Urology
PROC: 0TBB8ZX Excision of Bladder, Via Natural or Artificial Opening Endoscopic, Diagnostic (ICD-10-PCS; principal; 2019-08-07 17:38)
DX: R31.29 Other microscopic hematuria (principal); I73.9 Peripheral vascular disease, unspecified; J44.9 Chronic obstructive pulmonary disease, unspecified; I11.0 Hypertensive heart disease with heart failure; E78.5 Hyperlipidemia, unspecified; I25.5 Ischemic cardiomyopathy; H40.9 Unspecified glaucoma; E66.9 Obesity, unspecified; I25.10 Atherosclerotic heart disease of native coronary artery without angina pectoris; N40.0 Benign prostatic hyperplasia without lower urinary tract symptoms; Z95.5 Presence of coronary angioplasty implant and graft; Z95.810 Presence of automatic (implantable) cardiac defibrillator; Z68.30 Body mass index [BMI] 30.0-30.9, adult
CPT/HCPCS: 36415; 71046; 80048; 81001; 85027; 85610; 85730; 87088; 88305; 93005; 94640; 94664; 96365; A4344; A4354; G0378; J0330; J0360; J1100; J1956; J2001; J2250; J2310; J2405; J2704; J2710; J3010; J3490; J7120; J9280

== ENCOUNTER 2019-08-11 16:13 | Emergency (ER) | payer OTHER ==
[~2019-08-11 16:13] MED LIST changes: -CLOP75TA14 PO; -LEVOFLOXACIN 500 MG/D5W 100 ML 100 ML IV SCH; -MITOMYCIN 40 MG VIAL IV SCH
[2019-08-11 16:59] LABS: APPEARANCE,URINE CLOUDY (CLEAR); BILIRUBIN,URINE SMALL (NEGATIVE); GLUCOSE, URINE (UA) NEGATIVE (NEGATIVE); KETONES,URINE NEGATIVE (NEGATIVE); LEUKOCYTE ESTERASE ,URINE MODERATE (NEGATIVE); NITRATE,URINE POSITIVE (NEGATIVE); OCCULT BLOOD,URINE LARGE (NEGATIVE); PH,URINE 6.5 (5.0-8.0); PROTEIN,URINE >=300 mg/dL (NEGATIVE)
[2019-08-11 17:05] LABS: COLOR,URINE BROWN (YELLOW)
[2019-08-11 17:07] LABS: BACTERIA,URINE Rare /HPF (None Seen); RBC,URINE Full Field /HPF (0-1); SQUAMOUS EPITHELIAL CELL,UR None Seen /HPF (0-2)
== END 2019-08-11 17:22 | disposition home or self-care (01) ==
LOC: EDH 16:13
DX: T83.9XXA Unspecified complication of genitourinary prosthetic device, implant and graft, initial encounter (principal); I10 Essential (primary) hypertension; J44.9 Chronic obstructive pulmonary disease, unspecified; E78.5 Hyperlipidemia, unspecified; I25.10 Atherosclerotic heart disease of native coronary artery without angina pectoris; Z87.891 Personal history of nicotine dependence; Z88.0 Allergy status to penicillin; Z98.890 Other specified postprocedural states
CPT/HCPCS: 81001; 87088